=== PATIENT | male | born 1995 | race African-American/Black ===

== ENCOUNTER 2019-08-11 18:09 | Emergency (ER) | payer BC, MEDICAID, OTHER ==
[2019-08-11] MEDS ORDERED: Ibuprofen 200 MG TAB ONE (19:00)
--- NOTE | 2019-08-11 20:28 | RAD ---
RIGHT WRIST THREE VIEWS: HISTORY: Wrist pain. FINDINGS: The carpals appear normally aligned. No fracture. No evidence of ligamentous injury. IMPRESSION: Unremarkable right wrist. POS: [id number]
== END 2019-08-11 20:00 | disposition home or self-care (01) ==
LOC: ERS 18:09
DX: S63.501A Unspecified sprain of right wrist, initial encounter (principal); X50.0XXA Overexertion from strenuous movement or load, initial encounter

== ENCOUNTER 2021-10-16 19:30 | Emergency (ER) | payer BC | END 2021-10-16 22:21 | disposition home or self-care (01) | LOC: ERS 19:30 | DX: S60.132A Contusion of left middle finger with damage to nail, initial encounter (principal); W23.1XXA Caught, crushed, jammed, or pinched between stationary objects, initial encounter; F17.210 Nicotine dependence, cigarettes, uncomplicated | CPT/HCPCS: 99281 ==